=== PATIENT | female | born 1940 | race Caucasian/White ===

== ENCOUNTER 2016-06-11 08:11 | Day surgery (SDC) | payer MEDICARE, OTHER ==
[~2016-06-11] VITALS: Ht 157.5 cm; Wt 77.5 kg
[2016-06-11] VITALS (28 sets, daily range): BP systolic 110–199; BP diastolic 50–86; PULSE 60–86; RESP 13–28; Ht 157.5 cm; Wt 77.5 kg
[~2016-06-11 08:11] MED LIST: AMLO-147 PO; CHLO25TA13 PO; HYDR-3498 PO; IBUP-1542 PO
[2016-06-11] MEDS ORDERED: LOSA100T7 PO (08:42)
[2016-06-11] MEDS ORDERED: APR50 PO (08:43)
[2016-06-11] MEDS ORDERED: FURO20TA PO (08:44)
[2016-06-11] MEDS ORDERED: METO-448 PO (08:44)
[2016-06-11] MEDS ORDERED: ISOS30TA5 PO (08:44)
[2016-06-11] MEDS ORDERED: POTA20TA96 PO (08:45)
[2016-06-11] MEDS ORDERED: ASPI-664 PO (08:45)
[2016-06-11] MEDS ORDERED: ROSU20TA PO (08:45)
--- NOTE | 2016-06-11 09:13 | RADRPT ---
PROCEDURE: XR Chest. CLINICAL INDICATION: Shortness of breath. TECHNIQUE: Single frontal view. COMPARISON: 10/04/2013. FINDINGS: The lungs are clear. The heart is enlarged. There is calcification in the aorta consistent with atherosclerosis. There is no pleural effusion. There is no pneumothorax. IMPRESSION: 1. Cardiomegaly and atherosclerosis. 2. Clear lungs. RPTAT: QQ .Ruben Dinh MD, MD Date Time Electronically viewed and signed by .Ruben Dinh MD, MD on 06/11/2016 09:13 .R/
[2016-06-11 09:23] LABS: BASOPHILS % 0.6 % (0.0-2.0); EOSINOPHILS # 0.1 10^3/ul (0.0-0.5); EOSINOPHILS % 1.6 % (0.0-7.0); HEMATOCRIT 38.1 % (37.0-47.0); HEMOGLOBIN 12.5 g/dl (12.0-16.0); LYMPHOCYTES # 1.8 10^3/ul (0.8-2.9); LYMPHOCYTES % 25.2 % (15.0-51.0); MEAN CORPUSCULAR HEMOGLOBIN 27.9 pg (29.0-33.0); MEAN CORPUSCULAR HGB CONC 32.7 g/dl (32.0-37.0); MEAN CORPUSCULAR VOLUME 85.5 fl (82.0-101.0); MEAN PLATELET VOLUME 8.6 fl (7.4-10.4); MONOCYTE # 0.5 10^3/ul (0.3-0.9); MONOCYTES % 6.8 % (0.0-11.0); NEUTROPHIL # 4.7 10^3/ul (1.6-7.5); NEUTROPHILS % 65.8 % (39.0-77.0); PLATELET COUNT 311 10^3/UL (140-440); RED BLOOD COUNT 4.46 10^6/ul (4.20-5.40); RED CELL DISTRIBUTION WIDTH 15.1 % (11.5-14.5); UNCORRECTED WBC 7.2 10^3/ul (4.8-10.8); WHITE BLOOD COUNT 7.2 10^3/ul (4.8-10.8)
[2016-06-11 09:26] LABS: PROTIME 13.2 Sec (12.2-14.2)
[2016-06-11 09:27] LABS: PARTIAL THROMBOPLASTIN TIME 26.9 Sec (25.0-35.0)
[2016-06-11 09:34] LABS: CONDITION 1; LH ANALYZER COMMENTS 1
[2016-06-11 09:40] LABS: CALCIUM 9.2 mg/dl (8.4-10.2); CREATININE 0.68 mg/dl (0.44-1.00); POTASSIUM 4.1 mmol/L (3.5-5.1)
[2016-06-11] MEDS ORDERED: LIDOCAINE 1% (MDV) 20 ML INJ ONE (09:45)
[2016-06-11] MEDS ORDERED: MIDAZOLAM 1 MG/ML 2 ML INJ ONE (09:45)
[2016-06-11] MEDS ORDERED: HEPARIN 1000 UNITS/ML 10 ML INJ ONE (09:45)
[2016-06-11] MEDS ORDERED: VERAPAMIL 5 MG INJ ONE (09:45)
[2016-06-11] MEDS ORDERED: IODIXANOL LOCM 100 ML BTL ONE (09:45)
[2016-06-11] MEDS ORDERED: NITROGLYCERIN (IC) 100 MCG/ML INJ ONE (09:45)
[2016-06-11] MEDS ORDERED: FENTAnyl 50 MCG/ML VIAL ONE (09:45)
[2016-06-11] MEDS ORDERED: HEPARIN 1000 UNITS/NS (A-LINE) 1,000 ML ONE (09:45)
[2016-06-11 09:54] LABS: CHOL/HDL RATIO 3.3 RATIO
[2016-06-11] MEDS ORDERED: SOD CHLORIDE 0.9% 1,000 ML IV SCH (11:08)
[2016-06-11] MEDS ORDERED: AL HYDROX/MG HYDROX/SIMETH 30 ML CUP PO PRN (11:30)
[2016-06-11] MEDS ORDERED: morphine 2 MG INJ IV PRN (11:30)
[2016-06-11] MEDS ORDERED: ONDANSETRON 4 MG INJ IV PRN (11:30)
[2016-06-11] MEDS ORDERED: ACETAMINOPHEN 325 MG TAB PO PRN (11:30)
--- NOTE | 2016-06-11 14:03 | RADRPT ---
Vent Rate: 67 bpm RR Interval: 0 msec NM Interval: 184 msec QRS Duration: 146 msec QT Interval: 472 msec QTC Interval: 498 msec P-R-T Boomer: 18 - -21 - 127 degrees Normal sinus rhythm Left bundle branch block Abnormal ECG Electronically Signed By: Junior Bartlett [id number]
--- NOTE | 2016-06-11 17:42 | CARRPT ---
DATE OF PROCEDURE: TYPE OF PROCEDURE: 1. Left heart catheterization. 2. Coronary angiography. 3. Measurement of left ventricular end diastolic pressure. ATTENDING PHYSICIAN: Logan Monique MD REFERRING PHYSICIAN: Self-referred. INDICATION: Chest pain. Preoperative positive stress test. TYPE OF ANESTHESIA: Conscious and local. BRIEF HISTORY: Ms. Ahn is a 76-year-old female with a history of hypertension, dyslipidemia, who initially presented with complaints of substernal chest pain in a preoperative state. The patient s ubsequently had a cardiac stress test showing positive ischemia. Given these findings in a preopera tive patient, the patient referred for and presents today in order to undergo left heart catheteriza tion to assess for the possibility of significant obstructive coronary artery disease lending to sym ptoms of chest pain, positive stress test findings and a preoperative patient. PROCEDURE: After informed consent was obtained, the patient was brought to the [facility] cardiac catheterization lab where her right radial area was prepped and draped in usual alexis rile fashion. Two percent lidocaine was infiltrated into the right radial area in order to achieve adequate local anesthesia. Using the modified Seldinger technique, the radial artery was cannulated and a 6-Palauan arterial sheath was placed. A 6-Palauan JL3.5 catheter was used to cannulate the lef t main coronary ostium. With contrast injection, multiple views of the left coronary arterial syste m were obtained. JL3.5 over a guidewire and a JR4 was used to cannulate the right coronary arterial ostium. With contrast injection, multiple views of the right coronary arterial system were obtaine d. The JL4 was removed over a guidewire and a 6-Palauan pigtail was passed down the ascending aorta into the left ventricle where left ventricular end-diastolic pressure was measured. Due to the elev ated left ventricular end diastolic pressure, no LV gram was obtained. Then, the pigtail catheter w as then pulled back across the aortic valve to assess for significant gradient, which there was not and removed. At this time, the patient's sheath was removed. A TR band was applied. This complete d the procedure. There were no noted complications. Additionally, it should be noted that this pat ient at the onset of procedure got a radial cocktail including 200 mcg of IC nitroglycerin, 500 unit s of heparin and 2.5 mg of Verapamil. FINDINGS: 1. Coronary angiography: Left main 4.5 mm, no significant stenoses. Circumflex proximally is a 3. 5 mm vessel, has a 20% stenosis in the mid portion. An ostial had 20% stenosis. The remainder of t he circumflex is free of significant focal stenoses. There is 2 distal branching obtuse marginals, 2 mm ____ focal stenosis and then a very distal branch obtuse marginals each 2 mm, no significant fo tita stenosis. Circ ____ groove is free of significant focal stenosis. LAD proximally is a 3.5 mm v essel and had a 20% stenosis shortly after its takeoff. The remainder of the LAD thereafter is free of focal stenoses around the apex, proximal branching diagonal 2 mm with a 20% stenosis. The right coronary artery proximally is a 3 mm vessel, in its mid portion has a 40% stenosis. The remainder of the right coronary artery is free of significant focal stenoses. A dominant vessel gives off a 2 .5 mm PDA with no significant focal stenoses and a sub 2 mm posterolateral branch with mild luminal irregularities to 10% to 20%. Left ventricular end diastolic pressure of 32. No significant aortic stenosis by gradient. TOTAL FLUOROSCOPY TIME: 5.1 minutes. TOTAL CONTRAST: 85 mL. IMPRESSION: 1. Mild to moderate nonobstructive coronary artery disease. 2. Elevated left heart filling pressures. 3. No significant aortic stenosis by gradient. RECOMMENDATIONS: At this time, would: 1. Maximize medical management. 2. Aggressive risk factor reduction. 3. The patient will be readmitted to the same day surgery center for post-cath observation and cont inued management of symptoms. 4. At this time, the patient has no cardiac contraindications to proceeding to surgery. Dictated By: LOGAN RAMIREZ/BRIANA Conf#: [id number] DID#: [id number]
--- NOTE | 2016-06-12 13:37 | CONS ---
DATE OF ADMISSION: 06/11/2016 DATE OF CONSULTATION: 06/11/2016 TYPE OF CONSULTATION: Cardiology. INDICATION: Preoperative. HISTORY OF PRESENT ILLNESS: Ms. Ahn is a 76-year-old female with a history of hypertension, diast olic dysfunction, dyslipidemia who initially presented for preoperative evaluation for hand surgery. The patient in evaluation and subsequently underwent a cardiac stress test revealing positive isch emia. The patient continued to complain of chest pains. Therefore has been referred for left heart catheterization to assess for the possibility of significant obstructive coronary artery disease le nding to symptoms of chest pain and positive stress test findings in a preoperative patient. PAST MEDICAL HISTORY: As above in HPI. MEDICATIONS PRIOR TO ADMIT: 1. Potassium chloride 20 mEq daily. 2. Hydralazine 100 mg 3 times daily. 3. Crestor 20 mg daily. 4. Lasix 20 mg daily. 5. Losartan 100 mg daily. 6. Imdur 30 mg daily. 7. Hydralazine 75 mg 3 times daily. 8. Aspirin 81 mg daily. 9. [place] 3 1 gram daily. ALLERGIES: NO KNOWN DRUG ALLERGIES. SOCIAL HISTORY: No tobacco, ETOH or illicit drug use. FAMILY HISTORY: No history of sudden cardiac or early CAD. REVIEW OF SYSTEMS: As above in HPI. CONSTITUTIONAL: No fevers, chills. PULMONARY: No shortness of breath. CARDIOVASCULAR: Intermittent chest pain. GASTROINTESTINAL: No vomiting. GENITOURINARY: No hematuria. MUSCULOSKELETAL: Degenerative joint disease. PSYCHIATRIC: The patient denies depression. NEUROLOGIC: No documented history of CVA. PHYSICAL EXAMINATION VITAL SIGNS: Afebrile, blood pressures of 160/80, pulse in the 70s, saturating 100%. GENERAL: The patient is alert, awake, in no acute distress. NECK: JVP approximately 8 to 9 cm water. CHEST: Fair movement throughout. HEART: Regular rate and rhythm. Normal S1, S2, 1/6 systolic murmur, nondisplaced PMI. ABDOMEN: Positive bowel sounds, soft. EXTREMITIES: 1 to 2+ edema bilaterally, 1+ pulses bilaterally, posterior tibial. LABORATORY DATA: White blood cell count 7.2, hemoglobin 12.5, platelet count 311, sodium 145, potas sium 4.1, creatinine 0.6, glucose 100, INR of 1. IMAGING STUDIES: Pending at time of dictation. ECG, normal sinus rhythm at rate of 67, left bundle branch block, secondary to repolarization abnorm alities. IMPRESSION: 1. Preoperative for a hand surgery. 2. Abnormal cardiac stress test revealing positive ischemia. 3. Chest pain. 4. Hypertension. 5. Dyslipidemia. 6. Diastolic dysfunction. RECOMMENDATIONS: 1. At this time, patient will be maintained on her current medical therapy. 2. Patient to undergo left heart catheterization with possible need for PTCA and stent placement, w ith further recommendations to be made after completion of the study. Dictated By: LOGAN RAMIREZ/BRIANA Conf#: [id number] DID#: [id number]
== END 2016-06-11 17:28 | disposition home or self-care (01) ==
LOC: SDS 08:11
PROVIDERS: ATTEND Internal Medicine
DX: I25.10 Atherosclerotic heart disease of native coronary artery without angina pectoris (principal); R94.39 Abnormal result of other cardiovascular function study; I10 Essential (primary) hypertension; E78.5 Hyperlipidemia, unspecified
CPT/HCPCS: 71010; 80048; 80061; 85025; 85610; 85730; 93005; 93454; A4310; C1769; C1887; J1644; J2250; J3010; Q9967